=== PATIENT | male | born 1970 | race Caucasian/White ===

== ENCOUNTER 2018-04-09 00:26 | Inpatient (IN) | payer OTHER ==
--- NOTE | 2018-04-08 12:46 | HISTORY AND PHYSICAL ---
DATE OF ADMISSION: April 09, 2018 IDENTIFICATION/CHIEF COMPLAINT Carloz is a 47-year old gentleman with a chief complaint of left knee pain. HISTORY OF PRESENT ILLNESS Patient has a longstanding history of knee arthritis, progressively painful and debilitating and refractory to conservative care. Surgery is indicated to relieve symptoms after failure of nonoperative measures. PAST MEDICAL HISTORY 1. Hypertension, controlled on medication. 2. Sleep apnea with nightly CPAP use. 3. Exercise-induced mild asthma. 4. Acid reflux disease. 5. Depression. PAST SURGICAL HISTORY 1. Two left knee scopes. 2. Right knee replacement. SOCIAL HISTORY Negative for tobacco and alcohol use. FAMILY HISTORY Negative. REVIEW OF SYSTEMS Unremarkable. ALLERGIES He has no known drug allergies. CURRENT MEDICATIONS 1. Lisinopril 10 mg p.o. q. day. 2. Omeprazole 40 mg p.o. q. day. 3. Pristiq 50 mg p.o. q. day. 4. Ibuprofen as needed. PHYSICAL EXAMINATION GENERAL: Well-developed, well-nourished male who appears his stated age. HEENT: Normocephalic, atraumatic. NECK: Supple. LUNGS: Clear. HEART: Regular. ABDOMEN: Soft. ORTHOPEDIC EXAM The left knee has crepitus throughout and effusion present. Gross stability is good. His old arthroscopic portals are well healed. He is stiffened on range. Extensor function is intact. Radiographs demonstrate advanced degenerative changes. ASSESSMENT Left knee degenerative joint disease refractory to conservative care. PLAN Per patient request, we will proceed with total knee arthroplasty. The nature of the procedure, risks, benefits and anticipated rehabilitation course were reviewed. Risks of the procedure include, but are not limited to, , major medical or anesthetic complications, infection, neurovascular injury, blood transfusion, stiffness, scarring, fracture, tendon rupture, instability, implant loosening, migration or failure, persistent or recurrent pain, need for additional surgery and other unforeseen. He understands and wishes to proceed. A signed permit is placed on the chart. No guarantees given or implied. [facility]
[2018-04-09] VITALS (16 sets, daily range): BP systolic 108–135; BP diastolic 65–95
[~2018-04-09] VITALS: Ht 177.8 cm; Wt 97.5 kg
[~2018-04-09 00:26] MED LIST: ATOR20TA22 PO; DESV50TA9 PO; LISI20TA29 PO; MONT10TA PO; OMEP-125 PO; ZOLP-350 PO
[2018-04-09] MEDS ORDERED: ACETAMINOPHEN 500 MG TAB PO ONE (07:30)
[2018-04-09] MEDS ORDERED: ROPIVACAINE/EPI/CLONIDINE/KET 50 ML SYRINGE INJ ONE (07:30)
[2018-04-09] MEDS ORDERED: ceFAZolin(*) 2GM/D5W 50ML 50 ML IVPB ONE (07:30)
[2018-04-09] MEDS ORDERED: TRANEXAMIC AC 1000 MG/10ML SDV 1,000 MG in DEXTROSE 5% 50 ML BAG 50 ML IV ONE ×4 (07:30→08:00)
[2018-04-09] MEDS ORDERED: PREGABALIN 150 MG CAPSULE PO ONE (07:30)
[2018-04-09] MEDS ORDERED: MIDAZOLAM 2 MG/2 ML VIAL IVP PRN (07:30)
[2018-04-09] MEDS ORDERED: CELECOXIB 200 MG CAP PO ONE (07:30)
[2018-04-09] MEDS ORDERED: LIDOCAINE/SOD BICARB 8.4% SYR ID ONE (07:30)
[2018-04-09] MEDS ORDERED: NORMOSOL R SOLN(*) 1000 ML BAG 1,000 ML IV PRN ×2 (07:30→17:35)
[2018-04-09] MEDS ORDERED: VANCOMYCIN 1 GM VIAL ONE (14:39)
[2018-04-09] MEDS ORDERED: PROPOFOL EMUL(*) 10MG/ML 20 ML 40 ML ONE (14:48)
[2018-04-09] MEDS ORDERED: DEXAMETHASONE SOD PHOS 10MG/ML ONE (14:48)
[2018-04-09] MEDS ORDERED: ONDANSETRON 4 MG/2 ML VIAL ONE (14:48)
[2018-04-09] MEDS ORDERED: ROPIVACAINE 0.5% 20 ML VIAL ONE (15:52)
--- NOTE | 2018-04-09 17:21 | RADIOLOGY IMAGING REPORT ---
FACILITY: [facility] - [place] PATIENT NAME: Carloz German : 1970 MR: [id number] V: [id number] EXAM DATE: ORDERING PHYSICIAN: ISABELLE NAGEL TECHNOLOGIST: Location: [facility] - [place] Patient: Carloz German : 1970 Visit/Account:[id number] Date of Sevice: 04/09/2018 KNEE LIMITED LEFT Indication: POST OP L TOTAL KNEE Comparison: None. Findings: There are postoperative changes from a left total knee arthroplasty. The femoral, tibial, and patellar components are normal in position. Impression: Postoperative changes left total knee arthroplasty. Report Dictated By: Chris John at 04/09/2018 5:13 PM Report E-Signed By: Chris John at 04/09/2018 5:16 PM [id number]
[2018-04-09] MEDS ORDERED: BISACODYL 10 MG SUPP PR PRN (17:35)
[2018-04-09] MEDS ORDERED: ZOLPIDEM TARTRATE 5 MG TAB PO PRN (17:35)
[2018-04-09] MEDS ORDERED: PROMETHAZINE 25 MG/ML 1 ML AMP IVP PRN (17:35)
[2018-04-09] MEDS ORDERED: DIAZEPAM 5 MG TAB PO PRN (17:35)
[2018-04-09] MEDS ORDERED: FLUSH 10 ML SYR IVP PRN (17:35)
[2018-04-09] MEDS ORDERED: BENZOCAINE/MENTHOL 1 EACH LOZG PO PRN (17:35)
[2018-04-09] MEDS ORDERED: MAGNESIUM HYDROXIDE* 30ML UDCP PO PRN (17:35)
[2018-04-09] MEDS ORDERED: diphenhydrAMINE 25 MG CAP PO PRN (17:35)
[2018-04-09] MEDS ORDERED: diphenhydrAMINE 50 MG/ML VIAL IVP PRN (17:35)
[2018-04-09] MEDS ORDERED: ACETAMINOPHEN 325 MG TAB PO PRN (17:35)
--- NOTE | 2018-04-09 18:21 | Hospitalist Consultation ---
History of Present Illness Requesting Physician Dr. Pierre Reason for Consult Medical Management Chief Complaint s/p left knee replacement History of Present Illness He was admitted s/p left knee replacement. It is reported the surgery went well and without complication. History Problems: (1) Hyperlipidemia Status: Chronic (2) Hypertension Status: Chronic (3) GERD (gastroesophageal reflux disease) Status: Chronic (4) Depression Status: Chronic (5) Asthma Status: Chronic Home Meds Reported Medications Atorvastatin Calcium (LIPITOR) 20 Mg Tablet, 1 TAB PO QDAY, TAB 04/02/18 Montelukast Sodium (SINGULAIR) 10 Mg Tablet, 1 TAB PO QDAY, TAB 04/02/18 Omeprazole (OMEPRAZOLE) 20 Mg Capsule.dr, 1 CAP PO QDAY, CAP 04/02/18 Zolpidem Tartrate (AMBIEN) 10 Mg Tablet, 0.5 TAB PO QHS PRN for SLEEP, TAB 04/02/18 Lisinopril (LISINOPRIL) 20 Mg Tablet, 20 MG PO QDAY, TAB 04/02/18 Desvenlafaxine Succinate (PRISTIQ ER) 50 Mg Tab.er.24h, 50 MG PO 04/02/18 Allergies: Coded Allergies: tramadol (Verified Allergy, Unknown, 04/02/18) PT REPORTS FEELING DEPRESSED AND PARANOID Patient History: FH: [place] (myocardial infarction) FATHER FH: diabetes mellitus FATHER MOTHER FH: lung disease FATHER FHx: heart disease FATHER TIAs MOTHER Valvular heart disease FATHER Hx Smoking: No Smoking Status: Never Smoker Exposure to Second Hand Smoke?: Yes (CHILDHOOD ) Caffeine Intake: Coffee, Tea, Soda Caffeine/Cups Per Day: 1CPD Hx Alcohol Use: No Hx Substance Use Disorder: No Social Drug Use: Never History of IV Drug Use: No Review of Systems All Systems Reviewed/Normal: Yes, Except as Noted Exam Vital Signs Vital Signs Date Time Temp Pulse Resp B/P (MAP) Pulse Ox O2 Delivery O2 Flow Rate FiO2 04/09/18 17:30 76 16 93 04/09/18 13:14 97.4 135/95 (108) Room Air General Appearance: Alert, Awake, No Acute Distress, Afebrile Neuro: No Gross deficits Cardiovascular: Regular Rate and Rhythm Respiratory: No Respiratory Distress, Clear to Auscultation Psych: Alert & Oriented X3, Appropriate Mood & Affect Assessment and Plan Problems: (1) Status post left knee replacement Status: Acute Assessment & Plan: Followed by Dr. Pierre. He will be placed on Aspirin for DVT prophylaxis. (2) Hypertension Status: Chronic Assessment & Plan: He is on chronic treatment with Lisinopril. This has been restarted with hold parameters. (3) Hyperlipidemia Status: Chronic Assessment & Plan: He is on chronic treatment with Atorvastatin. (4) GERD (gastroesophageal reflux disease) Status: Chronic Assessment & Plan: He is on chronic treatment with Omeprazole. He will be placed on Protonix during admission. (5) Depression Status: Chronic Assessment & Plan: He is on chronic treatment with Pristiq. (6) Asthma Status: Chronic Assessment & Plan: He does have exercise induced asthma. He uses albuterol as needed. Reports use maybe once per year. (7) WILLIAM (obstructive sleep apnea) Status: Chronic Assessment & Plan: He is on chronic treatment with CPAP. He did bring his machine to use during admission. Venous Thromboembolism Antithrombotics Is Pt On Any Antithrombotics?: No Problem Qualifiers (1) Hypertension: Hypertension type: essential hypertension Qualified Codes: I10 - Essential (primary) hypertension SELWYN MUELLER Apr 09, 2018 18:21
[2018-04-09] MEDS: APAP/HYDROCODONE 325/7.5 TAB PO PRN (20:48)
--- NOTE | 2018-04-09 21:09 | OPERATIVE REPORT 1 ---
EVENT DATE: April 09, 2018 SURGEON: Rell Pierre MD ANESTHESIOLOGIST: Carloz Kraft MD ANESTHESIA: General plus spinal. CHILD CARE CENTRE DIRECTOR: YENI Coleman PREOPERATIVE DIAGNOSIS Left knee degenerative joint disease. POSTOPERATIVE DIAGNOSIS Left knee degenerative joint disease. PROCEDURE PERFORMED Left total knee arthroplasty. ESTIMATED BLOOD LOSS Minimal. DRAINS None. SPECIMENS None. COMPLICATIONS None apparent. TOURNIQUET TIME 49 minutes IMPLANTS USED Caden Triathlon knee system with 5 left PS femur, 6 standard tibial baseplate, 39 mm universal, symmetric, all-polyethylene patella button, and a 13 mm PS tibial tray liner. Polyethylene is X3. INDICATIONS Gabo is a 48-year-old gentleman with intractable pain and disability related to end-stage knee arthritis. Surgery is indicated to relieve symptoms after failure of nonoperative measures. DESCRIPTION OF PROCEDURE Patient is taken to the operating room and placed supine on the operating table. General anesthesia is induced after spinal nerve block is placed by the anesthesiologist. Standard antibiotics and TXA are administered IV. Left lower extremity is prepped and draped in the usual sterile fashion for orthopedic surgery. Limb is exsanguinated with an Esmarch bandage. Tourniquet is inflated to 250 mmHg. A midline longitudinal incision is made and carried down through the skin and subcutaneous tissue to the extensor mechanism. Full-thickness flap is developed far enough medially to allow medial parapatellar arthrotomy be performed. Patella is everted. Knee is brought into a flexed position. Fat pad, anterior horns of the menisci, and the cruciate ligaments are debrided. Subperiosteal medial release is initiated in a titrated fashion to start to balance the knee. A step drill is used to enter the distal femur. A 10-inch long alignment guide is used to engage the isthmus. Cut is set for 5 degrees of valgus relative to the anatomic axis. A 10 mm resection block is applied and pinned. Distal femoral cut is made with an oscillating saw. AP sizing guide is applied. It is cut and positioned for 3 degrees of external rotation relative to the posterior condyles. Size 5 is optimal without risk of notching. A four-in-one cutting block is applied. Anterior, posterior, posterior chamfer, and anterior chamfer cuts are made respectively. PS block is applied and centered. Medial and lateral bone is removed through the box. Trial femur has nice [id number] fit. Attention is turned to tibial preparation. The extramedullary guide is applied, positioned for varus, valgus, posterior slope, and rotation. This is set to resect 9 mm from the relatively intact lateral tibial plateau. It is dropped down another millimeter or two to assure an adequate cut. Block is pinned. Extramedullary alignment is checked. Cuts are made with an oscillating saw. After osteophyte removal and a bit more medial release, the capsule is balanced and symmetric with no additional releases required. A size 6 tibial baseplate provides optimum bony coverage without soft tissue overhang. This is inserted along with the trial liner and the trial femur. Knee is brought to extension. Patella is taken from a starting thickness of 26 to a residual of 15 mm with a patellar clamp and oscillating saw. The 39 provides optimal bony coverage without soft tissue overhang. Lug holes are drilled. Patella tracks nicely with the no-touch technique. Final tibial preparation consists of assuring appropriate rotational and translational positioning of the component. Boss is reamed. Fin is punched. Surface is lavaged. A mix of methacrylate is made, and components are cemented in a single stage. Once the cement is fully polymerized, tourniquet is deflated. Hemostasis is assured. A 13 PS tibial tray liner fills up the gap ideally, allowing the knee to drop to full extension without hyperextension, providing optimal soft tissue tension and stability. Tray is lavaged and dried, and the actual liner is locked into the baseplate. Once reduced, the arthrotomy is closed with in flexion with #2 Ethibond, subcutaneous tissue with 3-0 Vicryl, and skin with surgical sharif. Appropriate dressings are applied. Patient is awakened from anesthesia and taken to the recovery room in stable condition having tolerated the procedure well. PLAN Plan is for standard TKA rehab protocol. [facility]
[2018-04-09] MEDS ORDERED: NS(*) 0.9% 250 ML BAG 250 ML ONE (21:41)
[2018-04-09] MEDS: ceFAZolin(*) 1 GM VIAL 1 GM in NS(*) 0.9% 100 ML ADDVANT BAG 100 ML IVPB SCH (21:50)
[2018-04-10] VITALS: BP 110/72
[2018-04-10] MEDS: APAP/HYDROCODONE 325/7.5 TAB PO PRN ×3 (02:35→13:14)
[2018-04-10] MEDS: ceFAZolin(*) 1 GM VIAL 1 GM in NS(*) 0.9% 100 ML ADDVANT BAG 100 ML IVPB SCH ×2 (06:12→13:16)
[2018-04-10] MEDS: CELECOXIB 200 MG CAP PO SCH ×2 (08:48→17:26)
[2018-04-10] MEDS: ATORVASTATIN 10 MG TAB PO SCH (08:48)
[2018-04-10] MEDS: PANTOPRAZOLE SOD 40 MG TABEC PO SCH (08:48)
[2018-04-10] MEDS: LISINOPRIL 20 MG TAB PO SCH (08:50)
[2018-04-10] MEDS: MONTELUKAST SODIUM 10 MG TAB PO SCH (08:51)
[2018-04-10 08:55] VITALS: BP 117/84
[2018-04-10] MEDS ORDERED: ASPIRIN 325 MG TAB PO SCH (09:00)
[2018-04-10 09:14] VITALS: BMI 30.9
--- NOTE | 2018-04-10 10:20 | NUR ---
Physical Therapy Impression PT eval and treatment completed with CPM adjusted and pt instructed in ambulation with FWW and CGA. Physical Therapy Goals 1. Pt to be modified indep with all bed mobility and sup<>sit trnsfrs 2. Pt to be modified indep with sit<>stand transfers 3. Pt to ambulate x 150' with SBA/Mod Indep and least restrictive device Patient's Goals
--- NOTE | 2018-04-10 11:13 | Hospitalist Progress Note ---
Subjective Progress Notes Subjective He was admitted s/p knee replacement. He has no complaints this morning. He had no acute events overnight. Patient Complains of: Cardiovascular: No: Chest Pain Respiratory: No: Shortness of Breath Physical Exam Vital Signs Date Time Temp Pulse Resp B/P (MAP) Pulse Ox O2 Delivery O2 Flow Rate FiO2 04/10/18 08:55 98.1 103 16 117/84 (95) 91 Room Air Intake and Output 04/10/18 07:00 Intake Total 2672 ml Balance 2672 ml Intake Oral 772 ml IV Total 1900 ml # Voids 1 General Appearance: Alert, Awake, No Acute Distress, Afebrile Neuro: No Gross deficits Cardiovascular: Regular Rate and Rhythm Respiratory: No Respiratory Distress, Clear to Auscultation Psych: Alert & Oriented X3, Appropriate Mood & Affect Assessment and Plan Problems: (1) Status post left knee replacement Status: Acute Assessment & Plan: Followed by Dr. Pierre. He will be placed on Aspirin for DVT prophylaxis. (2) Hypertension Status: Chronic Assessment & Plan: He is on chronic treatment with Lisinopril. This has been restarted with hold parameters. (3) Hyperlipidemia Status: Chronic Assessment & Plan: He is on chronic treatment with Atorvastatin. (4) GERD (gastroesophageal reflux disease) Status: Chronic Assessment & Plan: He is on chronic treatment with Omeprazole. He will be placed on Protonix during admission. (5) Depression Status: Chronic Assessment & Plan: He is on chronic treatment with Pristiq. (6) Asthma Status: Chronic Assessment & Plan: He does have exercise induced asthma. He uses albuterol as needed. Reports use maybe once per year. (7) WILLIAM (obstructive sleep apnea) Status: Chronic Assessment & Plan: He is on chronic treatment with CPAP. He did bring his machine to use during admission. Exam Sepsis Risk: No Definite Risk Problem Qualifiers (1) Hypertension: Hypertension type: essential hypertension Qualified Codes: I10 - Essential (primary) hypertension SELWYN MUELLERP Apr 10, 2018 11:13
[2018-04-10 13:18] VITALS: BP 119/69
[2018-04-10 14:05] VITALS: Ht 177.8 cm; Wt 97.5 kg
[2018-04-10 22:05] VITALS: BP 118/81
[2018-04-10 23:43] VITALS: BP 117/70
[2018-04-11 04:17] VITALS: BP 127/70
[2018-04-11] MEDS: APAP/HYDROCODONE 325/7.5 TAB PO PRN ×2 (04:24→08:51)
[2018-04-11 08:33] VITALS: BP 117/80
[2018-04-11] MEDS: ATORVASTATIN 10 MG TAB PO SCH (08:45)
[2018-04-11] MEDS: PANTOPRAZOLE SOD 40 MG TABEC PO SCH (08:45)
[2018-04-11] MEDS: MONTELUKAST SODIUM 10 MG TAB PO SCH (08:45)
[2018-04-11] MEDS: CELECOXIB 200 MG CAP PO SCH (08:45)
[2018-04-11] MEDS: LISINOPRIL 20 MG TAB PO SCH (08:45)
[2018-04-11] MEDS ORDERED: ASPI81TA86 PO (08:50)
[2018-04-11] MEDS ORDERED: ASPIRIN 81 MG ENTERIC COATED PO SCH (09:00)
[2018-04-11] MEDS ORDERED: HYDR-654 PO (09:36)
--- NOTE | 2018-04-11 10:31 | Hospitalist Progress Note ---
Subjective Progress Notes Subjective He was admitted s/p knee replacement. He has no complaints this morning. He had no acute events overnight. Patient Complains of: Cardiovascular: No: Chest Pain Respiratory: No: Shortness of Breath Physical Exam Vital Signs Date Time Temp Pulse Resp B/P (MAP) Pulse Ox O2 Delivery O2 Flow Rate FiO2 04/11/18 08:33 97.9 94 16 117/80 (92) 92 Room Air 04/11/18 01:00 1.0 Intake and Output 04/11/18 07:00 Intake Total 1420 ml Balance 1420 ml Intake Oral 1320 ml IV Total 100 ml # Voids 3 General Appearance: Alert, Awake, No Acute Distress, Afebrile Neuro: No Gross deficits Cardiovascular: Regular Rate and Rhythm Respiratory: No Respiratory Distress, Clear to Auscultation GI: Soft and Non-Tender Psych: Alert & Oriented X3, Appropriate Mood & Affect Assessment and Plan Problems: (1) Status post left knee replacement Status: Acute Assessment & Plan: Followed by Dr. Pierre. He was placed on Aspirin for DVT prophylaxis. (2) Hypertension Status: Chronic Assessment & Plan: He is on chronic treatment with Lisinopril. This was restarted with hold parameters. (3) Hyperlipidemia Status: Chronic Assessment & Plan: He is on chronic treatment with Atorvastatin. (4) GERD (gastroesophageal reflux disease) Status: Chronic Assessment & Plan: He is on chronic treatment with Omeprazole. He was placed on Protonix during admission. (5) Depression Status: Chronic Assessment & Plan: He is on chronic treatment with Pristiq. (6) Asthma Status: Chronic Assessment & Plan: He does have exercise induced asthma. He uses albuterol as needed. Reports use maybe once per year. (7) WILLIAM (obstructive sleep apnea) Status: Chronic Assessment & Plan: He is on chronic treatment with CPAP. He did bring his machine to use during admission. Exam Sepsis Risk: No Definite Risk Problem Qualifiers (1) Hypertension: Hypertension type: essential hypertension Qualified Codes: I10 - Essential (primary) hypertension SELWYN MUELLER Apr 11, 2018 10:31
--- NOTE | 2018-04-11 17:52 | NUR ---
Physical Therapy Impression Late Entry for visit completed 04/10/18. PT goals met. Pt is safe to d/c home from a mobility stand point. PT will check in for any further concerns or questions in the morning prior to anticipated d/c home with out pt therapy arranged. Physical Therapy Goals 1. Pt to be modified indep with all bed mobility and sup<>sit trnsfrs 2. Pt to be modified indep with sit<>stand transfers 3. Pt to ambulate x 150' with SBA/Mod Indep and least restrictive device Patient's Goals
--- NOTE | 2018-04-11 17:53 | NUR ---
Physical Therapy Impression PT goals met and questions answered regarding CPM. Pt to follow up with surgeon and out pt PT as scheduled. Physical Therapy Goals 1. Pt to be modified indep with all bed mobility and sup<>sit trnsfrs 2. Pt to be modified indep with sit<>stand transfers 3. Pt to ambulate x 150' with SBA/Mod Indep and least restrictive device Patient's Goals
== END 2018-04-11 10:30 | disposition home or self-care (01) | DRG 470 ==
LOC: OR 00:26 → MED 18:00
PROVIDERS: ADMIT Orthopaedic Surgery; ATTEND Orthopaedic Surgery
PROC: 0SRD0J9 Replacement of Left Knee Joint with Synthetic Substitute, Cemented, Open Approach (ICD-10-PCS; principal; 2018-04-09 15:15)
PROC: 5A09357 Assistance with Respiratory Ventilation, Less than 24 Consecutive Hours, Continuous Positive Airway Pressure (ICD-10-PCS; 2018-04-09 15:15)
DX: M17.12 Unilateral primary osteoarthritis, left knee (principal); I10 Essential (primary) hypertension; J45.990 Exercise induced bronchospasm; K21.9 Gastro-esophageal reflux disease without esophagitis; F32.9 Major depressive disorder, single episode, unspecified; E78.00 Pure hypercholesterolemia, unspecified; G47.33 Obstructive sleep apnea (adult) (pediatric); E78.5 Hyperlipidemia, unspecified; Z96.651 Presence of right artificial knee joint
CPT/HCPCS: 36415; 76942; 85610; 86850; 86900; 86901; 97161; C1713; C1776; J0690; J1100; J2250; J2405; J2704; J2795; J3370; J7050; J7060; Q0163